=== PATIENT | female | born 1980 | race Caucasian/White ===

== ENCOUNTER 2024-05-16 21:05 | Observation (INO) | payer OTHER ==
[~2024-05-16] VITALS: Ht 157.5 cm; Wt 92.5 kg
[~2024-05-16 21:05] MED LIST: IBUP-974 PO; TRAM-748 PO
[2024-05-16 21:12] VITALS: BP 132/71; PULSE 78; RESP 20; TEMP 98; O2SAT 98
[2024-05-16 22:26] LABS: BASOPHILS % (AUTO) 0.4 % (0.0-2.0); EOSINOPHILS # (AUTO) 0.2 K/uL (0-0.4); EOSINOPHILS % (AUTO) 2.7 % (0.0-4.0); HEMOGLOBIN 7.1 g/dL (12.0-16.0); LYMPHOCYTES % (AUTO) 30.3 % (20.5-51.1); MEAN CORPUSCULAR HEMOGLOBIN 18 pg (27-31); MEAN CORPUSCULAR HGB CONC 30 g/dL (33-37); MEAN CORPUSCULAR VOLUME 60.1 fL (80-94); MONOCYTES # (AUTO) 0.6 K/uL (0.8-1.0); MONOCYTES % (AUTO) 8.7 % (1.7-9.3); NEUTROPHILS # (AUTO) 3.8 K/uL (1.8-7.7); NEUTROPHILS % (AUTO) 57.9 % (42.2-75.2); PLATELET COUNT (AUTO) 271 K/uL (140-450); RED BLOOD CELL COUNT(AUTO) 3.99 MIL/uL (4.20-5.40); RED CELL DISTRIBUTION WIDTH 21.6 % (11.6-13.7); WHITE BLOOD COUNT (AUTO) 6.6 K/uL (4.8-10.8)
[2024-05-16 22:37] LABS: ANION GAP 12.3 (8-16); CALCIUM 8.7 mg/dL (8.5-10.1); CARBON DIOXIDE 25.7 mmol/L (21-32); CREATININE 0.6 mg/dL (0.6-1.3)
[2024-05-16] MEDS: diphenhydrAMINE 50 MG/ML VIAL IVP ONE (22:52)
[2024-05-16] MEDS: PROCHLORPERAZINE 10 MG/2 ML VIAL IVP ONE (22:53)
[2024-05-16] MEDS: KETOROLAC 30 MG/ML VIAL IVP ONE (22:54)
[2024-05-16 23:40] LABS: APPEARANCE,URINE CLEAR (CLEAR); BILIRUBIN,URINE NEGATIVE (NEGATIVE); BLOOD, URINE NEGATIVE (NEGATIVE); COLOR,URINE YELLOW (YELLOW); LEUKOCYTE ESTERASE ,URINE NEGATIVE (NEGATIVE); NITRITE, URINE NEGATIVE (NEGATIVE); PROTEIN,URINE NEGATIVE (NEGATIVE); UGLUCOSE NEGATIVE (NEGATIVE); UROBILINOGEN,URINE 0.2 EU/dL (0.2 - 1)
[2024-05-16 23:57] LABS: INR 0.87 (0.8-1.2); PROTHROMBIN TIME 9.2 secs (10.8-13.4)
[2024-05-17] MEDS ORDERED: ACETAMINOPHEN 325 MG TAB PO PRN (00:10)
[2024-05-17] MEDS: HYDROcodone/APAP 5/325 MG 1 TAB TAB PO PRN (09:48)
[2024-05-17] MEDS: ONDANSETRON 4 MG/2 ML VIAL IVP PRN (09:49)
[2024-05-17 10:15] VITALS: O2SAT 97
[2024-05-17] MEDS ORDERED: PANT40EC56 PO (12:49)
[2024-05-17] MEDS ORDERED: AMIT25TA51 PO (12:49)
[2024-05-17] MEDS ORDERED: IMI25 PO (12:53)
[2024-05-17] MEDS: PANTOPRAZOLE 40 MG TABEC PO SCH (15:53)
[2024-05-17] MEDS: AMITRIPTYLINE 25 MG TAB PO SCH (15:54)
[2024-05-17 16:29] VITALS: BP 125/68; PULSE 68; RESP 18; TEMP 97.1
[2024-05-17] MEDS ORDERED: MEDS-TO-BEDS MC SCH (21:00)
== END 2024-05-17 17:30 | disposition home or self-care (01) ==
LOC: MED 21:05 → MTU 05-17 00:06
PROVIDERS: ADMIT Internal Medicine; ATTEND Internal Medicine
DX: G43.909 Migraine, unspecified, not intractable, without status migrainosus (principal); D50.9 Iron deficiency anemia, unspecified; N92.0 Excessive and frequent menstruation with regular cycle; F41.9 Anxiety disorder, unspecified; M19.90 Unspecified osteoarthritis, unspecified site; Z79.899 Other long term (current) drug therapy
CPT/HCPCS: 36415; 36430; 80048; 81003; 85025; 85610; 85730; 86886; 86900; 86901; 86920; 87081; 96374; 96375; 99291; G0378; J0780; J1200; J1885; J2405; P9016

== ENCOUNTER 2024-06-13 13:45 | Emergency (ER) | payer OTHER ==
[~2024-06-13] VITALS: Ht 157.5 cm; Wt 90.7 kg
[~2024-06-13 13:45] MED LIST changes: +AMIT25TA51 PO; -IBUP-974 PO; +IMI25 PO; +PANT40EC56 PO
[2024-06-13 13:59] VITALS: BP 105/47; PULSE 78; RESP 16; TEMP 97.6; O2SAT 99
--- NOTE | 2024-06-13 14:40 | NUR ---
Patient discharged with v/s stable. Written and verbal after care instructions FOR URI given and explained. Patient verbalized understanding. Ambulatory with steady gait. All questions addressed prior to discharge. Advised to follow up with PMD. SCHOOL NOTE PROVIDED
== END 2024-06-13 14:40 | disposition home or self-care (01) ==
LOC: MED 13:45
DX: J06.9 Acute upper respiratory infection, unspecified (principal); Z79.899 Other long term (current) drug therapy
CPT/HCPCS: 99281

== ENCOUNTER 2024-07-21 16:17 | Emergency (ER) | payer OTHER ==
[~2024-07-21] VITALS: Ht 157.5 cm; Wt 90.7 kg
[2024-07-21 16:24] VITALS: BP 121/55; PULSE 78; RESP 16; TEMP 97.1; O2SAT 99
[2024-07-21] MEDS ORDERED: TERB1CRE TP (17:01)
[2024-07-21] MEDS ORDERED: IBUP-2218 PO (17:01)
[2024-07-21] MEDS ORDERED: ACYC400T14 PO (17:01)
[2024-07-21] MEDS ORDERED: GABA300C PO (17:01)
[2024-07-21 17:20] VITALS: BP 114/58; PULSE 73; RESP 18; O2SAT 98
== END 2024-07-21 17:20 | disposition home or self-care (01) ==
LOC: MED 16:17
DX: B02.9 Zoster without complications (principal); B35.0 Tinea barbae and tinea capitis; I10 Essential (primary) hypertension; Z79.899 Other long term (current) drug therapy
CPT/HCPCS: 93005; 99283

== ENCOUNTER 2024-08-08 00:05 | Observation (INO) | payer OTHER ==
[~2024-08-08] VITALS: Ht 157.5 cm; Wt 98.4 kg
[~2024-08-08 00:05] MED LIST changes: +ACYC400T14 PO; +GABA300C PO; +IBUP-2218 PO; +TERB1CRE TP
[2024-08-08 00:29] VITALS: BP 115/46; PULSE 94; RESP 18; TEMP 98.5; O2SAT 99
[2024-08-08 01:29] LABS: BASOPHILS % (AUTO) 0.4 % (0.0-2.0); EOSINOPHILS # (AUTO) 0.2 K/uL (0-0.4); EOSINOPHILS % (AUTO) 2.9 % (0.0-4.0); LYMPHOCYTES # (AUTO) 1.7 K/uL (2.5-16.5); LYMPHOCYTES % (AUTO) 21.7 % (20.5-51.1); MEAN CORPUSCULAR HEMOGLOBIN 19 pg (27-31); MEAN CORPUSCULAR HGB CONC 30 g/dL (33-37); MEAN CORPUSCULAR VOLUME 61.7 fL (80-94); MONOCYTES # (AUTO) 0.5 K/uL (0.8-1.0); MONOCYTES % (AUTO) 6.2 % (1.7-9.3); NEUTROPHILS # (AUTO) 5.3 K/uL (1.8-7.7); NEUTROPHILS % (AUTO) 68.8 % (42.2-75.2); PLATELET COUNT (AUTO) 277 K/uL (140-450); RED BLOOD CELL COUNT(AUTO) 3.65 MIL/uL (4.20-5.40); RED CELL DISTRIBUTION WIDTH 21.3 % (11.6-13.7); WHITE BLOOD COUNT (AUTO) 7.7 K/uL (4.8-10.8)
[2024-08-08 01:37] LABS: HEMATOCRIT 22.5 % (36-48); HEMOGLOBIN 6.8 g/dL (12.0-16.0)
[2024-08-08 01:39] LABS: ANION GAP 9.6 (8-16); CALCIUM 8.4 mg/dL (8.5-10.1); CARBON DIOXIDE 28.5 mmol/L (21-32); CREATININE 0.6 mg/dL (0.6-1.3); POTASSIUM 4.1 mmol/L (3.5-5.1)
[2024-08-08 02:19] LABS: INR 0.88 (0.8-1.2); PARTIAL THROMBOPLASTIN TIME 21.6 secs (22-35.6); PROTHROMBIN TIME 9.3 secs (10.8-13.4)
[2024-08-08] MEDS ORDERED: MAGNESIUM OXIDE 400 MG TAB PO PRN (02:55)
[2024-08-08] MEDS ORDERED: KCL 20 MEQ IN 100 mL PREMIX 200 ML IV PRN (02:55)
[2024-08-08] MEDS ORDERED: ONDANSETRON 4 MG/2 ML VIAL IVP PRN (02:55)
[2024-08-08] MEDS ORDERED: ACETAMINOPHEN 325 MG TAB PO PRN (02:55)
[2024-08-08] MEDS ORDERED: HYDROcodone/APAP 5/325 MG 1 TAB TAB PO PRN (02:55)
[2024-08-08] MEDS ORDERED: POTASSIUM CHLORIDE 10 MEQ TABER PO PRN (02:55)
[2024-08-08] MEDS ORDERED: MAG SULF 2000 MG/WATER PREMIX 50 ML IV PRN (02:55)
[2024-08-08 03:57] VITALS: BP 124/50; PULSE 72; RESP 16; RESP 18; TEMP 97.6; O2SAT 100; O2SAT 99
[2024-08-08] MEDS: MORPHINE SULFATE 4 MG/ML SYR IVP PRN (05:22)
[2024-08-08 07:30] VITALS: BP 111/63; PULSE 68; RESP 18; TEMP 97.8; O2SAT 97
[2024-08-08 08:00] VITALS: PULSE 68
[2024-08-08] MEDS: DOCUSATE SODIUM 100 MG GELCAP PO SCH (09:28)
[2024-08-08 11:05] VITALS: O2SAT 98
[2024-08-08 12:08] LABS: HEMATOCRIT 24.3 % (36-48); HEMOGLOBIN 7.3 g/dL (12.0-16.0)
[2024-08-08] MEDS: MORPHINE SULFATE 2 MG/ML SYR IVP PRN (12:36)
[2024-08-08] MEDS ORDERED: MEDS-TO-BEDS MC SCH (21:00)
== END 2024-08-08 15:05 | disposition home or self-care (01) ==
LOC: MED 00:05 → MMU 02:53 → MTU 04:17
PROVIDERS: ADMIT Hospitalist; ATTEND Hospitalist
DX: D64.9 Anemia, unspecified (principal); G43.909 Migraine, unspecified, not intractable, without status migrainosus; M79.10 Myalgia, unspecified site; R06.02 Shortness of breath; M19.90 Unspecified osteoarthritis, unspecified site; I10 Essential (primary) hypertension; Z86.73 Personal history of transient ischemic attack (TIA), and cerebral infarction without residual deficits; Z79.899 Other long term (current) drug therapy
CPT/HCPCS: 36415; 36430; 80048; 85018; 85025; 85610; 85730; 86886; 86900; 86901; 86920; 87081; 94760; 96374; 96376; 99291; G0378; J2270; P9016